=== PATIENT | male | born 1955 | race Caucasian/White ===

== ENCOUNTER → 2019-11-09 | Outpatient (CLI) | payer BC ==
--- NOTE | 2019-11-09 11:02 | KCIC ---
EXAM: LEFT ANKLE 3 VIEWS. HISTORY: Left ankle pain after injury. COMPARISON: None. FINDINGS: Three views of the left ankle are obtained. No acute fractures are identified. An ossicle at the tip of the medial malleolus is consistent with a chronic avulsion injury. Another ossicle along the medial aspect of the lateral malleolus may represent an avulsion fragment or loose body and measures 6 mm. There is moderate narrowing of the medial mortise joint space and mild tibiotalar osteophytosis. 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 There are small posterior and moderate plantar calcaneal spurs. Mild atherosclerotic calcifications are noted. There is soft tissue swelling medially and laterally. IMPRESSION: 1. No acute fracture. Changes of chronic ligamentous injuries. 2. Mild osteoarthritis of the ankle mortise. Electronically signed by: Stewart Lala MD (11/09/2019 10:59 AM) [id number]
== END | disposition home or self-care (01) ==
LOC: KCIC 10:35
PROVIDERS: ATTEND Family Medicine
DX: M19.072 Primary osteoarthritis, left ankle and foot (principal); M25.772 Osteophyte, left ankle; M79.89 Other specified soft tissue disorders
CPT/HCPCS: 73610